=== PATIENT | female | born 1960 | race Caucasian/White ===

== ENCOUNTER 2019-11-12 09:37 | Day surgery (SDC) | payer MEDICARE, SELFPAY ==
[2019-11-12 10:03] VITALS: BP 148/80; PULSE 74; RESP 16; TEMP 36.4; O2SAT 98; BMI 29.4
[2019-11-12] MEDS: Lactated Ringers 1,000 ML 100 ML IV (10:09)
[2019-11-12] MEDS: Lubricating Jelly 60 GM Tube 30 GM TOPICAL (10:49)
[2019-11-12] MEDS: Cefazolin 2 GM in 0.9% Normal Saline 100 ML IV (10:49)
[2019-11-12 11:22] VITALS: BP 131/89; BP 148/80; PULSE 82; RESP 16; TEMP 36.4; O2SAT 96
--- NOTE | 2019-11-12 11:27 | PCM.DC.URO ---
Discharge Diet: No Restrictions Discharge Activity: Return to Normal Activity, May Shower May resume sexual activity in: 4 weeks Additional Activity Instructions:: no tub bathing, no hot tubs for 4 weeks Call your doctor if your incision/area has: Continuous Slow Oozing, Sudden Increased Bleeding, Increased Pain/ Swelling, Increased Redness, Foul Smelling Discharge, Swelling at the incision site Call your doctor if you observe: Fever of 101 or Higher, Inability to urinate, Inability to have a bowel movement Allergies/Adverse Reactions: Allergies hydromorphone [From Dilaudid] Allergy (Verified 11/12/19 10:09) Rash latex Allergy (Verified 11/12/19 10:09) Chest tightness WHEEZING morphine Allergy (Verified 11/12/19 10:09) Rash STEROIDS Allergy (Uncoded 11/12/19 10:09) Shortness of breath RAGE Medications to take at Discharge Cholecalciferol (Vitamin D3) [Vitamin D3] 5,000 unit PO DAILY 10/04/19 Lorazepam [Ativan] 0.5 mg PO QHS PRN PRN 10/04/19 Magnesium 250 mg PO DAILY 10/04/19 Rizatriptan Benzoate [Maxalt] 10 mg PO .X1 PRN 10/04/19 Thyroid [Ellis Thyroid] 90 mg PO DAILY 10/04/19 Zolpidem Tartrate [Ambien] 5 mg PO QHS PRN PRN 10/04/19 Codeine 30 mg PO Q6H PRN PRN 3 Days #6 tablet 11/12/19 The following prescriptions were given: Codeine 30 mg PO Q6H PRN PRN 3 Days #6 tablet PRN Reason: pain Transmission Status: Received by [facility]/pharmacy #[id number] Orders to be completed after discharge: CORONAVIRUS 19, [facility] Time Frame: 10/08/19, Facility: [facility], Location: Laboratory Primary Care Physician: ROB WILEY [Other] Test Results: Test results from this visit will be discussed in further detail at your follow-up appointment, if applicable. Please Follow Up With: Catherine Rush MD When: 3-4 weeks, call for appt Proposed Discharge Date: 11/12/19
--- NOTE | 2019-11-12 11:29 | OP.PCM_ITS ---
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 She presented to the office with specific point tenderness with intercourse at the apex of the vagina on the left side more than the right. On exam I identified vaginal adhesions at the apex as the source of this discomfort. Given her history we discussed evaluation with cystoscopy, pelvic exam under anesthesia with lysis of adhesions. Informed consent was obtained after discussing the risks, benefits, alternatives and specifically the risks of COVID-19. The patient's was present for all discussions and both patient and gave consent to proceed. The patient was taken to the operating room and laced on the operating room table. Anesthesia monitored the head, neck, airway, IV access and vital signs throughout the case. Once anesthesia was appropriately administered the patient was placed into dorsal lithotomy position and was prepped and draped in usual sterile fashion. At this time a cystourethroscopy was performed through the urethra under direct visualization. There were no mucosal abnormalities identified within the urinary bladder. External compression from support structures posteriorly were identified. There was no foreign object within the urinary bladder. Bilateral ureteral orifices were located on the area of the trigone. There were no masses, lesions or other abnormalities identified. Patient's bladder was emptied. A pelvic examination was performed and bridging adhesions all along the apex of the vagina were identified. These were taken d own with Metzenbaums. Care was taken to avoid injury to the support of the apical region of the vagina. When needed, an interrupted 4-0 chromic suture was placed for hemostatic control. At the conclusion of this, the case was terminated. Patient was awakened and taken to the recovery room in good condition. Grafts/Implants Used: none - Complications none - Admit VTE Documentation VTE Present on Admission: Yes VTE Mechan Device Prophylaxis: SCD's VTE Pharm Prophylaxis ordered?: No Reason prophylaxis not ordered:: Treatment Not Indicated
[2019-11-12 11:30] VITALS: BP 142/92; BP 148/80; PULSE 79; RESP 16; O2SAT 100
[2019-11-12 11:35] VITALS: BP 140/90; BP 148/80; PULSE 80; RESP 16; O2SAT 98
[2019-11-12 11:45] VITALS: BP 148/80; BP 155/93; PULSE 78; RESP 16; TEMP 36.2; O2SAT 100
[2019-11-12 12:24] VITALS: BP 148/80
== END 2019-11-12 12:34 | disposition home or self-care (01) ==
LOC: SDC 09:38 → AC 09:38
PROVIDERS: Referring Provider Urology; Visit Provider Urology
PROC: 0TJB8ZZ Inspection of Bladder, Via Natural or Artificial Opening Endoscopic (ICD-10-PCS; CPT 57410; principal; 2019-11-12 10:45)
DX: N94.10 Unspecified dyspareunia (principal); N89.5 Stricture and atresia of vagina; F32.9 Major depressive disorder, single episode, unspecified; D75.1 Secondary polycythemia; Z79.899 Other long term (current) drug therapy; G43.909 Migraine, unspecified, not intractable, without status migrainosus; K58.9 Irritable bowel syndrome, unspecified; E21.3 Hyperparathyroidism, unspecified; D25.9 Leiomyoma of uterus, unspecified
CPT/HCPCS: 00910; 52000; 58999; J7120; J2405